=== PATIENT | female | born 1990 | race Caucasian/White ===

== ENCOUNTER 2018-06-15 10:57 | Emergency (ER) | payer BC ==
[2018-06-15 12:00] VITALS: BP 128/81
--- NOTE | 2018-06-15 13:56 | UC ---
Respiratory Complaint HPI - HPI Summary HPI Summary: 7-8 DAYS OF DRY COUGH. PATIENT DENIES NASAL CONGESTION, FEVER, SORE THROAT, EAR PAIN. NO NAUSEA/VOMITING. COUGH IS KEEPING HER AWAKE AT NIGHT. UP-TO- DATE VACCINATIONS. 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 - History of Current Complaint Chief Complaint: UCRespiratory Stated Complaint: COUGH Time Seen by Provider: 06/15/18 12:34 Hx Obtained From: Patient Hx Last Menstrual Period: 05/20/18/ Onset/Duration: Gradual Onset, Lasting Days, Still Present Timing: Constant Severity Initially: Moderate Severity Currently: Moderate Pain Intensity: 0 Pain Scale Used: 0-10 Numeric Character: Cough: Nonproductive Aggravating Factors: Nothing Alleviating Factors: Nothing Associated Signs And Symptoms: Negative: Dyspnea, Fever, Chills, Wheezing, Nasal Congestion, Hoarseness - Allergies/Home Medications Allergies/Adverse Reactions: Allergies Allergy/AdvReac Type Severity Reaction Status Date / Time No Known Allergies Allergy Verified 06/15/18 11:52 Home Medications: Home Medications Eucalyptus/Menthol [Cough Drops] 1 each MM SEE INSTRUCTIONS PRN 06/15/18 [ History Confirmed 06/15/18] Levonorgestrel (Iud) [Mirena IUD] 20 mcg IU SEE INSTRUCTIONS 06/15/18 [History Confirmed 06/15/18] PMH/Surg Hx/FS Hx/Imm Hx Previously Healthy: Yes - Surgical History Surgical History: None - Family History Known Family History: Positive: Non-Contributory - Social History Alcohol Use: Occasionally Substance Use Type: None Smoking Status (MU): Never Smoked Tobacco Review of Systems All Other Systems Reviewed And Are Negative: Yes Constitutional: Positive: Negative ENT: Positive: Negative Respiratory: Positive: Cough Cardiovascular: Positive: Negative Gastrointestinal: Positive: Negative Genitourinary: Positive: Negative Physical Exam Triage Information Reviewed: Yes Appearance: Well-Appearing, No Pain Distress, Well-Nourished Vital Signs: Initial Vital Signs Temp 99.5 F 06/15/18 11:55 Pulse 75 06/15/18 11:55 Resp 18 06/15/18 11:55 BP 128/81 06/15/18 11:55 Pulse Ox 100 06/15/18 11:55 Vital Signs Reviewed: Yes Eyes: Positive: Conjunctiva Clear ENT: Positive: Hearing grossly normal, Pharynx normal, TMs normal Neck: Positive: Supple, Nontender, No Lymphadenopathy Respiratory Exam: Normal Cardiovascular Exam: Normal Abdomen Description: Positive: Soft Musculoskeletal: Positive: No Edema Neurological: Positive: Alert Psychological: Positive: Age Appropriate Behavior Skin: Negative: Rashes Respiratory Course/Dx - Course Course Of Treatment: PATIENT PRESENTS WITH ISOLATED COUGH A COMPLAINT. SYMPTOMS NOT CONSISTENT WITH URI. CLINICALLY PATIENT DOES NOT HAVE A PNEUMONIA. WILL TREAT FOR AIRWAY IRRITATION/INFLAMMATION WITH PREDNISONE. PATIENT DENIES ANY HISTORY OF UNDERLYING LUNG DISORDER SUCH ASTHMA. WILL HOLD OFF ON INHALER FOR NOW SHE IS NOT SHORT OF BREATH OR WHEEZY. COUGH MEDICINE FOR NIGHTTIME. FOLLOW-UP IF NOT IMPROVING OVER THE NEXT WEEK OR SO. CONSIDER PERTUSSIS HOWEVER PATIENT HAS ONLY BEEN COUGHING FOR ABOUT A WEEK AND STATES SHE IS UP-TO-DATE ON VACCINATIONS. WILL NOT TREAT WITH ANTIBIOTICS AT THIS TIME. - Differential Dx/Diagnosis Provider Diagnosis: Cough in adult Discharge - Sign-Out/Discharge Documenting (check all that apply): Patient Departure All imaging exams completed and their final reports reviewed: No Studies - Discharge Plan Condition: Stable Disposition: HOME Prescriptions: Benzonatate CAP* [Tessalon CAP*] 1 - 2 cap PO TID PRN #30 cap PRN Reason: Cough predniSONE TAB* [Deltasone 20 MG TAB*] 40 mg PO DAILY #10 tab Patient Education Materials: Acute Cough (ED) Referrals: [facility] [Outside] - If Needed Additional Instructions: CALL THE NUMBER BELOW FOR ASSISTANCE IN ESTABLISHING WITH A PCP An additional resource available to assist in finding the appropriate physician for your health care needs is [facility] ([facility]). You may contact them by calling [phone]. - Billing Disposition and Condition Condition: STABLE Disposition: Home
== END 2018-06-15 13:03 | disposition home or self-care (01) ==
LOC: UCCORT 10:57
DX: R05 Cough (principal)
CPT/HCPCS: 99212; G0463